=== PATIENT | female | born 1950 | race Caucasian/White ===

== ENCOUNTER 2017-03-05 11:17 | Emergency (ER) | payer MEDICARE ==
[2017-03-05] MEDS ORDERED: Sodium Chloride 0.9% 1000 ML 1,000 ML IV STA (11:21)
--- NOTE | 2017-03-05 11:28 | ERPHSYRPT ---
- History of Present Illness Time Seen by Provider: 03/05/17 11:23 Source: patient Exam Limitations: no limitations Physician History: 66 y/o female with history of Butterfield's Palsy and HTN comes to the ER after passing out 1 hour after donating blood. Pt was in a standing position, felt dizzy and passed out. Upon awakening, patient felt weak. Pt arrives with a BP of 99/67 and a HR in the 50's. Finger stick is 127 in the ER. Pt denies any chest pain, shortness of breath, palpitations, blurry vision, heaviness of tongue or any slurred speech. Witnessed: bystander Prior Episodes: single episode today Precipitating Factors: other (donating blood) Context: standing Loss of Consciousness: brief (seconds) Charcter of event(s): collapsed, felt faint Allergies/Adverse Reactions: Cephalosporins Allergy (Verified 03/05/17 11:29) penicillinase Allergy (Verified 03/05/17 11:29) Sulfa (Sulfonamide Antibiotics) Allergy (Verified 03/05/17 11:29) - Review of Systems Constitutional: No Fever, No Chills Eyes: No Symptoms Ears, Nose, & Throat: No Symptoms Respiratory: No Cough, No Dyspnea Cardiac: Syncope, No Chest Pain, No Edema, No Palpitations Abdominal/Gastrointestinal: No Abdominal Pain, No Nausea, No Vomiting, No Diarrhea Genitourinary Symptoms: No Dysuria Musculoskeletal: No Back Pain, No Neck Pain Skin: No Rash Neurological: Dizziness, No Focal Weakness, No Headache, No Seizure, No Sensory Changes Psychological: No Symptoms Endocrine: No Symptoms All Other Systems: Reviewed and Negative Physical Exam - Nursing Vital Signs Nursing Vital Signs: Initial Vital Signs Temperature 97.3 F 03/05/17 11:22 Pulse Rate 53 L 03/05/17 11:22 Respiratory Rate 18 03/05/17 11:22 Blood Pressure 97/38 03/05/17 11:22 O2 Sat by Pulse Oximetry 99 03/05/17 11:22 Pain Scale Pain Intensity 0 - [place] Coma Scale Best Eye Response ([place]): (4) open spontaneously Best Verbal Response ([place]): (5) oriented Best Motor Response ([place]): (6) obeys commands Dalia Total: 15 - Physical Exam General Appearance: no apparent distress, alert Eye Exam: bilateral eye: PERRL, EOMI Ears, Nose, Throat Exam: normal ENT inspection, pharynx normal, moist mucous membranes Neck Exam: normal inspection, non-tender, supple, full range of motion Respiratory: normal breath sounds, lungs clear, No chest tenderness, No respiratory distress Cardiovascular: regular rate/rhythm, capillary refill <2 sec, No murmur, No pulse deficit Gastrointestinal: soft, No tenderness, No distention, No mass Back Exam: normal inspection, normal range of motion, No CVA tenderness, No vertebral tenderness Extremity Exam: normal inspection, normal range of motion, pelvis stable, No tenderness Mental Status: alert, oriented x 3, cooperative handle maker Exam: normal speech, PERRL, facial droop, No facial paresthesias, No facial weakness Coordination/Gait: normal finger to nose Motor/Sensory: no motor deficit, no sensory deficit, no pronator drift Skin Exam: normal color, warm, dry, No rash SpO2 Interpretation: normal - Course Nursing assessment & vital signs reviewed: Yes Ordered Tests: Active Orders 24 hr Category Date Time Status EKG-ER Only STAT Care 03/05/17 11:21 Active IV Insertion STAT Care 03/05/17 11:21 Active HEAD WITHOUT CONTRAST [CT] Stat Exams 03/05/17 11:22 Completed CBC W DIFF Stat Lab 03/05/17 11:30 Completed CMP Stat Lab 03/05/17 11:30 Completed TROPONIN Q3H Lab 03/05/17 11:30 Completed TROPONIN Q3H Lab 03/05/17 14:30 Ordered TROPONIN Q3H Lab 03/05/17 17:30 Ordered TROPONIN Q3H Lab 03/05/17 20:30 Ordered TROPONIN Q3H Lab 03/05/17 23:30 Ordered Medication Summary Generic Name Dose Route Start Last Admin Trade Name Freq PRN Reason Stop Dose Admin Sodium Chloride 1,000 mls @ 100 mls/hr 03/05/17 13:30 03/05/17 13:23 Sodium Chloride 0.9% 1000 Ml IV 04/04/17 13:29 100 mls/hr .Q10H ELLIOTT Administration Discontinued Medications Generic Name Dose Route Start Last Admin Trade Name Freq PRN Reason Stop Dose Admin Sodium Chloride 1,000 mls @ 999 mls/hr 03/05/17 11:21 03/05/17 11:31 Sodium Chloride 0.9% 1000 Ml IV 03/05/17 12:21 999 mls/hr .Q1H1M STA Administration Sodium Chloride Confirm 03/05/17 11:30 Sodium Chloride 0.9% 1000 Ml Administered 03/05/17 11:31 Dose 1,000 mls @ ud .ROUTE .STK-MED ONE Potassium Chloride 20 meq in 100 mls @ 50 mls/hr 03/05/17 12:15 03/05/17 12: 23 Potassium Chloride 20 Meq In Water 100ml IV 03/05/17 14:14 50 mls/hr STAT ONE Administration Potassium Chloride Confirm 03/05/17 12:21 Potassium Chloride 20 Meq In Water 100ml Administered 03/05/17 12:22 Dose 100 mls @ ud IV .STK-MED ONE Sodium Chloride Confirm 03/05/17 13:18 Sodium Chloride 0.9% 1000 Ml Administered 03/05/17 13:19 Dose 1,000 mls @ ud .ROUTE .STK-MED ONE Lab/Rad Data: Laboratory Result Diagrams 03/05/17 11:30 03/05/17 11:30 Laboratory Results 03/05/17 03/05/17 03/05/17 Range/Units 11:30 11:30 11:30 WBC 5.4 (4.0-10.5) K/mm3 RBC 4.04 L (4.1-5.4) M/mm3 Hgb 13.1 (12.0-16.0) gm/dl Hct 37.7 (35-47) % MCV 93.3 (78-100) fl MCH 32.4 H (26-32) pg MCHC 34.7 (32-36) g/dl RDW 12.5 (11.5-14.0) % Plt Count 246 (150-450) K/mm3 MPV 10.3 H (6-9.5) fl Gran % 52.6 (36.0-66.0) % Lymphocytes % 34.6 (24.0-44.0) % Monocytes % 10.4 (0.0-12.0) % Eosinophils % 2.0 (0.00-5.0) % Basophils % 0.4 (0.0-0.4) % Basophils # 0.02 (0-0.4) Sodium 137 (136-145) mEq/L Potassium 2.9 L* (3.5-5.1) mEq/L Chloride 100 (98-107) mEq/L Carbon Dioxide 24.8 (21-32) mEq/L Anion Gap 15.8 H (5-15) MEQ/L BUN 21 H (9-20) mg/dL Creatinine 1.16 (0.55-1.30) mg/dl Estimated GFR 50 ML/MIN Glucose 158 H (70-110) MG/DL Calcium 9.4 (8.5-10.1) mg/dL Total Bilirubin 0.60 (0.2-1.0) mg/dL AST 21 (15-37) U/L ALT 17 (12-78) U/L Alkaline Phosphatase 81 (46-116) U/L Troponin I < 0.017 (0.000-0.056) ng/ml Serum Total Protein 7.1 (6.4-8.2) gm/dL Albumin 3.7 (3.4-5.0) g/dL - Progress Progress: improved Progress Note: 03/05/17 14:22 Pt has a K of 2.9. Pt was given a k-rider. The CT head and cardiac workup are negative. Pt feel better with improvement in BP and HR. Pt will be d/c home with a diagnosis of hypovolemia from dehydration and hypokalemia. - Departure Time of Disposition: 14:23 Departure Disposition: Home Clinical Impression: Hypovolemia dehydration, Hypokalemia Fainting Qualifiers: Syncope type: unspecified Qualified Code(s): R55 - Syncope and collapse Condition: Stable Critical Care Time: Yes Critical Care Time(excluding separately billable procedures): 75-104 minutes Referrals: MARY ANN YORK [Primary Care Provider] - Instructions: Fainting, Hypokalemia, Dehydration -- Adult Additional Instructions: Follow up with your PCP in the next 2-3 days.
[2017-03-05] MEDS ORDERED: Sodium Chloride 0.9% 1000 ML 1,000 ML ONE ×2 (11:30→13:18)
[2017-03-05 11:35] LABS: BASOPHIL % 0.4 % (0.0-0.4); Granulocytes % 52.6 % (36.0-66.0); Lymphocytes % 34.6 % (24.0-44.0); Mean Cell Volume 93.3 fl (78-100); Mean Corpuscular Hemoglobin 32.4 pg (26-32); Mean Platelet Volume 10.3 fl (6-9.5); Monocytes % 10.4 % (0.0-12.0); Platelet Count 246 K/mm3 (150-450); Red Blood Count 4.04 M/mm3 (4.1-5.4); Red Cell Distribution Width 12.5 % (11.5-14.0); White Blood Count 5.4 K/mm3 (4.0-10.5)
[2017-03-05 12:01] LABS: ALBUMIN 3.7 g/dL (3.4-5.0); ANION GAP 15.8 MEQ/L (5-15); BILIRUBIN,TOTAL 0.6 mg/dL (0.2-1.0); Carbon Dioxide 24.8 mEq/L (21-32); Total Protein 7.1 gm/dL (6.4-8.2)
--- NOTE | 2017-03-05 12:03 | XRAY ---
Indication: Syncope. Multiple contiguous axial images obtained through the head without contrast. Comparison: None Normal appearing brain parenchyma, ventricles, and bony calvarium. Left sphenoid sinus fluid leveling. Remaining visualized paranasal sinuses and mastoid air cells clear. Impression: Normal CT head without contrast exam. Incidental paranasal sinus disease. CTDI 51.90
[2017-03-05 12:12] LABS: Potassium 2.9 mEq/L (3.5-5.1)
[2017-03-05] MEDS ORDERED: POTASSIUM CHLORIDE 20 mEq IN WATER 100ML 20 MEQ/100 ML BAG IV ONE (12:15)
[2017-03-05] MEDS ORDERED: POTASSIUM CHLORIDE 20 mEq IN WATER 100ML 100 ML IV ONE (12:21)
[2017-03-05] MEDS ORDERED: Sodium Chloride 0.9% 1000 ML 1,000 ML IV SCH (13:30)
[2017-03-05 14:48] VITALS: BP 115/70; PULSE 53; O2SAT 99
== END 2017-03-05 14:48 | disposition home or self-care (01) ==
LOC: ED 11:17
DX: R55 Syncope and collapse (principal); E86.1 Hypovolemia; E86.0 Dehydration; E87.6 Hypokalemia; G51.0 Bell's palsy; I10 Essential (primary) hypertension
CPT/HCPCS: 36000; 36415; 70450; 80053; 82962; 84484; 85025; 93005; 96360; 96361; 96365; 96367; 99284; J3480